=== PATIENT | female | born 1945 | race Caucasian/White ===

== ENCOUNTER 2018-04-04 08:10 | Emergency (ER) | payer MEDICARE, MEDICAID ==
[~2018-04-04] VITALS: Ht 165.1 cm; Wt 72.7 kg
[~2018-04-04 08:10] MED LIST: AMLODIPINE5 MG PO; ASPIRIN 32325 MG/TAB PO; ATIVAN1 MG PO; CARBATROL200 MG PO; CARBATROL300 MG PO; DARVOCET N PO; DIOVAN HCT 25 M1 TA1 PO; DIOVAN HCT PO; DIOVAN320 MG PO; GLUCOPHAGE1000 MG PO; GLUCOPHAGE500 MG PO; GLUCOPHAGE500 MG/TAB PO; NORCO 325 MG-51 TAB PO; NORVASC 10MG10 MG PO; NYSTATIN POWDER15 GM PO; PHENYTEK200 MG PO; PRAVACHOL 40MG40 MG PO; TENORMIN 2525 MG/TAB PO; VIMPAT100 MG PO; VIMPAT50 MG PO; ZOCOR 20MG20 MG PO; ZOCOR 40MG40 MG PO
[2018-04-04 08:12] VITALS: TEMP 97
[2018-04-04 08:26] LABS: BASO # 0.1 (0.0-0.2); BASO % 1.1 % (0.0-2.0); EOS # 0.1 (0.0-0.7); EOS % 1.9 % (0-4.0); GRAN # 3.3 (1.4-6.5); HEMATOCRIT 35.9 % (37.0-47.0); HEMOGLOBIN 11.8 g/dl (12.5-16.0); LYMPH # 0.9 (1.2-3.4); LYMPH % 18.9 % (20.0-51.0); MEAN CELL VOLUME 90 fl (80.0-100.0); MEAN CORPUSCULAR HEMOGLOBIN 30 pg (27.0-31.0); MEAN CORPUSCULAR HGB CONC 33 g/dl (33.0-37.0); MEAN PLATELET VOLUME 10.4 fl (7.4-10.4); MONO # 0.3 (0.1-0.6); MONO % 6.8 % (1.7-9.3); PLATELET COUNT 144 K/mm3 (130-400); REDCELL DISTRIBUTION WIDTH-CV 13.3 % (11.5-14.5)
[2018-04-04] MEDS ORDERED: HCTZ12.5TAB PO (08:35)
[2018-04-04] MEDS ORDERED: COZAAR100 MG PO (08:36)
[2018-04-04] MEDS ORDERED: ZOLOFT 25MG25 MG PO (08:36)
[2018-04-04] MEDS ORDERED: LIPITOR 40MG TA40 MG PO (08:36)
[2018-04-04] MEDS ORDERED: VIMPAT100 MG PO (08:37)
[2018-04-04 08:38] LABS: ALBUMIN 4.2 gm/dL (3.5-5.0); BILIRUBIN,TOTAL 0.3 mg/dL (0.0-1.0); C-REACTIVE PROTEIN 0.6 mg/dL (0.0-0.9); CALCIUM 9.3 mg/dL (8.4-10.2); CREATININE, serum 0.92 mg/dL (0.52-1.25); POTASSIUM 3.5 mmol/L (3.4-5.0); TOTAL PROTEIN 7.1 gm/dL (6.4-8.2)
[2018-04-04] MEDS ORDERED: ARICEPT 5MG PO (08:38)
[2018-04-04] MEDS ORDERED: TAB-A-VITE1 TA1 PO (08:39)
[2018-04-04] MEDS ORDERED: SINEMET 25/101 UDTAB PO (08:39)
[2018-04-04 08:52] LABS: PROLACTIN 64.1 ng/mL (3.0-18.6)
[2018-04-04 09:37] LABS: COLLECTION METHOD CLEAN CATCH
[2018-04-04 09:43] LABS: MUCOUS Present /lpf; PH 6 (5-8); URINE APPEARANCE Clear; URINE BACTERIA None Seen /hpf; URINE BILIRUBIN Negative (NEGATIVE); URINE BLOOD Negative (NEGATIVE); URINE COLOR Yellow; URINE GLUCOSE Negative (NEGATIVE); URINE KETONE Negative (NEGATIVE); URINE LEUKOCYTE ESTERASE Negative (NEGATIVE); URINE NITRATE Negative (NEGATIVE); URINE PROTEIN(semi-quant) Negative (NEGATIVE); URINE RBC 0-2 /hpf; URINE UROBILINOGEN Negative (NEGATIVE)
[2018-04-04 10:30] VITALS: BP 162/66; PULSE 79
== END 2018-04-04 10:32 | disposition home or self-care (01) ==
LOC: COL.ER 08:10
PROVIDERS: Family Medicine
DX: S00.93XA Contusion of unspecified part of head, initial encounter (principal); G40.909 Epilepsy, unspecified, not intractable, without status epilepticus; F03.90 Unspecified dementia, unspecified severity, without behavioral disturbance, psychotic disturbance, mood disturbance, and anxiety; Z87.891 Personal history of nicotine dependence; Z79.82 Long term (current) use of aspirin
CPT/HCPCS: J2060; J7030

== ENCOUNTER → 2018-07-13 | Outpatient (REF) ==
[~2018-07-13] MED LIST changes: +ARICEPT 5MG PO; +COZAAR100 MG PO; +HCTZ12.5TAB PO; +LIPITOR 40MG TA40 MG PO; +SINEMET 25/101 UDTAB PO; +TAB-A-VITE1 TA1 PO; +ZOLOFT 25MG25 MG PO
== END ==
LOC: ZLAB.STJ 09:38
DX: Z51.81 Encounter for therapeutic drug level monitoring (principal)

== ENCOUNTER → 2018-08-25 | Outpatient (CLI) | payer MEDICARE, MEDICAID ==
[2018-08-25 12:49] LABS: ALBUMIN 4.3 gm/dL (3.5-5.0); BILIRUBIN,TOTAL 0.4 mg/dL (0.0-1.0); CALCIUM 9.6 mg/dL (8.4-10.2); CREATININE, serum 0.91 mg/dL (0.52-1.25); POTASSIUM 4.4 mmol/L (3.4-5.0); TOTAL PROTEIN 7.2 gm/dL (6.4-8.2)
== END ==
LOC: ZLAB.STJ 12:12
PROVIDERS: Internal Medicine
DX: E11.9 Type 2 diabetes mellitus without complications (principal); I10 Essential (primary) hypertension

== ENCOUNTER 2018-09-08 13:05 | Emergency (ER) | payer MEDICARE, MEDICAID ==
[~2018-09-08] VITALS: Ht 172.7 cm; Wt 81.8 kg
[2018-09-08 13:15] VITALS: TEMP 97.9
[2018-09-08 13:47] LABS: BASO # 0.1 (0.0-0.2); BASO % 1.1 % (0.0-2.0); EOS # 0.1 (0.0-0.7); EOS % 2.3 % (0-4.0); GRAN # 3.3 (1.4-6.5); GRAN % 62.6 % (42.2-75.2); HEMATOCRIT 37.3 % (37.0-47.0); HEMOGLOBIN 12.3 g/dl (12.5-16.0); LYMPH # 1.4 (1.2-3.4); LYMPH % 26.2 % (20.0-51.0); MEAN CELL VOLUME 89 fl (80.0-100.0); MEAN CORPUSCULAR HEMOGLOBIN 29 pg (27.0-31.0); MEAN CORPUSCULAR HGB CONC 33 g/dl (33.0-37.0); MEAN PLATELET VOLUME 10.1 fl (7.4-10.4); MONO # 0.4 (0.1-0.6); MONO % 7.6 % (1.7-9.3); PLATELET COUNT 180 K/mm3 (130-400); RED BLOOD COUNT 4.21 M/mm3 (4.10-5.30); REDCELL DISTRIBUTION WIDTH-CV 13.2 % (11.5-14.5)
[2018-09-08 14:03] LABS: ALBUMIN 4.3 gm/dL (3.5-5.0); BILIRUBIN,TOTAL 0.3 mg/dL (0.0-1.0); CREATININE, serum 0.92 mg/dL (0.52-1.25); POTASSIUM 3.8 mmol/L (3.4-5.0); TOTAL PROTEIN 7.5 gm/dL (6.4-8.2)
[2018-09-08 14:14] LABS: COLLECTION METHOD CATHETER
[2018-09-08 14:28] LABS: PH 7 (5-8); SQUAMOUS EPITHELIAL None Seen /hpf; URINE APPEARANCE Clear; URINE BACTERIA None Seen /hpf; URINE BILIRUBIN Negative (NEGATIVE); URINE BLOOD 1+ (NEGATIVE); URINE COLOR Straw; URINE GLUCOSE Negative (NEGATIVE); URINE KETONE Negative (NEGATIVE); URINE LEUKOCYTE ESTERASE Negative (NEGATIVE); URINE NITRATE Negative (NEGATIVE); URINE PROTEIN(semi-quant) Negative (NEGATIVE); URINE UROBILINOGEN Negative (NEGATIVE)
[2018-09-08 18:01] VITALS: BP 172/92; PULSE 77
== END 2018-09-08 18:03 | disposition home or self-care (01) ==
LOC: COL.ER 13:05
PROVIDERS: Physician Assistant
DX: N95.0 Postmenopausal bleeding (principal); E11.9 Type 2 diabetes mellitus without complications; I10 Essential (primary) hypertension; G40.909 Epilepsy, unspecified, not intractable, without status epilepticus; G20 Parkinson's disease; Z98.890 Other specified postprocedural states; Z98.51 Tubal ligation status; Z79.82 Long term (current) use of aspirin; Z87.891 Personal history of nicotine dependence
CPT/HCPCS: J7030

== ENCOUNTER 2018-11-05 15:14 | Emergency (ER) | payer MEDICARE, MEDICAID ==
[~2018-11-05] VITALS: Ht 165.1 cm; Wt 81.8 kg
[2018-11-05 15:20] VITALS: TEMP 98.2
[2018-11-05 15:50] LABS: BASO % 0.3 % (0.0-2.0); EOS % 0.1 % (0-4.0); GRAN # 8.4 (1.4-6.5); GRAN % 84.7 % (42.2-75.2); HEMATOCRIT 38.1 % (37.0-47.0); HEMOGLOBIN 12.5 g/dl (12.5-16.0); LYMPH # 0.7 (1.2-3.4); LYMPH % 7.4 % (20.0-51.0); MEAN CELL VOLUME 89 fl (80.0-100.0); MEAN CORPUSCULAR HEMOGLOBIN 29 pg (27.0-31.0); MEAN CORPUSCULAR HGB CONC 33 g/dl (33.0-37.0); MEAN PLATELET VOLUME 9.8 fl (7.4-10.4); MONO # 0.7 (0.1-0.6); MONO % 7.2 % (1.7-9.3); PLATELET COUNT 209 K/mm3 (130-400); RED BLOOD COUNT 4.26 M/mm3 (4.10-5.30)
[2018-11-05 16:04] LABS: ALANINE AMINOTRANSFERASE 15 U/L (9-52); ALBUMIN 4.4 gm/dL (3.5-5.0); ALKALINE PHOSPHATASE 163 U/L (50-136); ANION GAP 9 mmol/L (7-16); AST,SGOT 30 U/L (15-37); BILIRUBIN,TOTAL 0.4 mg/dL (0.0-1.0); BLOOD UREA NITROGEN 21 mg/dL (7-17); C-REACTIVE PROTEIN < 0.5 mg/dL (0.0-0.9); CALCIUM 9.8 mg/dL (8.4-10.2); CARBON DIOXIDE 27 mmol/L (22-30); CHLORIDE 102 mmol/L (98-107); CREATININE, serum 0.84 mg/dL (0.52-1.25); GLUCOSE 127 mg/dL (74-106); POTASSIUM 3.6 mmol/L (3.4-5.0); SODIUM 138 mmol/L (137-145); TOTAL PROTEIN 7.5 gm/dL (6.4-8.2)
[2018-11-05 16:34] LABS: PHENYTOIN (DILANTIN) 11.5 ug/mL (10.0-20.0)
--- NOTE | 2018-11-05 16:47 | NUR ---
CHRISTIE rec'd call from nurse about patient contacting EMS multiple times today and patient having little homecare at home. CHRISTIE met with patient to talk about her homecare person and how often they see her. Patient reports her aid comes on wednesdays and she does not have nurse or any therapy. Patient has used a walker in the past but she does not use one anymore. CHRISTIE asked patient if she would be interested in nursing and physical therapy from the company she has an aid through ([facility]). Patient reported she would think those would be good for her. CHRISTIE faxed a referral and [facility] reported they have telephone answering service operator nursing that can see her this weekend.
[2018-11-05 16:51] LABS: COLLECTION METHOD CATHETER
[2018-11-05 16:58] LABS: PH 5 (5-8); SQUAMOUS EPITHELIAL 0-2 /hpf; URINE APPEARANCE Clear; URINE BACTERIA None Seen /hpf; URINE BILIRUBIN Negative (NEGATIVE); URINE BLOOD 1+ (NEGATIVE); URINE COLOR Yellow; URINE GLUCOSE Negative (NEGATIVE); URINE KETONE Negative (NEGATIVE); URINE LEUKOCYTE ESTERASE Negative (NEGATIVE); URINE NITRATE Negative (NEGATIVE); URINE PROTEIN(semi-quant) Negative (NEGATIVE); URINE RBC 0-2 /hpf; URINE UROBILINOGEN Negative (NEGATIVE)
[2018-11-05] MEDS ORDERED: ASPIRIN E.C. 8181 MG PO (17:27)
[2018-11-05] MEDS ORDERED: NORVASC 10MG10 MG PO (17:27)
[2018-11-05] MEDS ORDERED: LIPITOR 40MG TA40 MG PO (17:27)
[2018-11-05] MEDS ORDERED: ARICEPT 5MG PO (17:28)
[2018-11-05] MEDS ORDERED: SINEMET 25/101 UDTAB PO (17:28)
[2018-11-05] MEDS ORDERED: DILANTIN 100MG100 MG PO (17:29)
[2018-11-05] MEDS ORDERED: COZAAR100 MG PO (17:29)
[2018-11-05] MEDS ORDERED: HCTZ12.5TAB PO (17:29)
[2018-11-05] MEDS ORDERED: VIMPAT100 MG PO (17:30)
[2018-11-05] MEDS ORDERED: ZOLOFT 25MG25 MG PO (17:30)
[2018-11-05 19:15] VITALS: BP 110/85; PULSE 88
== END 2018-11-05 19:29 | disposition home or self-care (01) ==
LOC: COL.ER 15:14
PROVIDERS: Emergency Medicine
DX: S00.31XA Abrasion of nose, initial encounter (principal); R53.1 Weakness; I10 Essential (primary) hypertension; G20 Parkinson's disease; F03.90 Unspecified dementia, unspecified severity, without behavioral disturbance, psychotic disturbance, mood disturbance, and anxiety; Z79.82 Long term (current) use of aspirin; W19.XXXA Unspecified fall, initial encounter; Y92.009 Unspecified place in unspecified non-institutional (private) residence as the place of occurrence of the external cause

== ENCOUNTER → 2019-01-25 | Outpatient (CLI) | payer MEDICARE, MEDICAID ==
[~2019-01-25] MED LIST changes: +ASPIRIN E.C. 8181 MG PO; +DILANTIN 100MG100 MG PO
== END ==
LOC: MC.RAD 13:21
DX: N63.10 Unspecified lump in the right breast, unspecified quadrant (principal)
CPT/HCPCS: G0279

== ENCOUNTER 2020-03-17 16:33 | Inpatient (IN) | payer MEDICARE, MEDICAID ==
[~2020-03-17] VITALS: Wt 89.7 kg
[2020-03-17 16:54] LABS: BASO % 0.4 % (0.0-2.0); EOS % 0.1 % (0-4.0); GRAN # 7.7 (1.4-6.5); GRAN % 85.9 % (42.2-75.2); HEMATOCRIT 39.5 % (37.0-47.0); HEMOGLOBIN 12.9 g/dl (12.5-16.0); LYMPH # 0.7 (1.2-3.4); LYMPH % 7.6 % (20.0-51.0); MEAN CELL VOLUME 88 fl (80.0-100.0); MEAN CORPUSCULAR HEMOGLOBIN 29 pg (27.0-31.0); MEAN CORPUSCULAR HGB CONC 33 g/dl (33.0-37.0); MEAN PLATELET VOLUME 10.1 fl (7.4-10.4); MONO # 0.5 (0.1-0.6); MONO % 5.7 % (1.7-9.3); PLATELET COUNT 194 K/mm3 (130-400); RED BLOOD COUNT 4.48 M/mm3 (4.10-5.30); REDCELL DISTRIBUTION WIDTH-CV 13.4 % (11.5-14.5)
[2020-03-17 17:16] LABS: ALBUMIN 4.5 gm/dL (3.5-5.0); BILIRUBIN,TOTAL 0.5 mg/dL (0.0-1.0); C-REACTIVE PROTEIN 0.7 mg/dL (0.0-0.9); CALCIUM 9.6 mg/dL (8.4-10.2); CREATININE, serum 0.88 (0.52-1.25); POTASSIUM 3.4 mmol/L (3.4-5.0); TOTAL PROTEIN 7.9 gm/dL (6.4-8.2)
[2020-03-17 17:30] LABS: PROLACTIN 48.6 ng/mL (3.0-18.6); TROPONIN-I 0.088 ng/mL (0.000-0.035)
[2020-03-17 17:42] LABS: PHENYTOIN (DILANTIN) 20.4 ug/mL (10.0-20.0)
--- NOTE | 2020-03-17 20:43 | NUR ---
Pt REPORT RECEIVED FROM MARINE INSULATOR. Pt IS BEING ADMITTED FOR SEIZURES AND N-STEMI. Pt IS REPORTED TO BE ALERT BUT CONFUSED WITH VS WNL AND NO S/S OF DISTRESS AT THIS TIME. AWAITING Pt ARRIVAL ON MEDICAL UNIT.
--- NOTE | 2020-03-17 20:50 | NUR ---
Pt ARRIVED TO MEDICAL UNIT FROM ED WITH ED NURSE. Pt IS EDUCATED ON ROOM ORIENTATION AND CALL LIGHT/TV REMOTE CONTROL. Pt IS A&OX4 BUT IS CONFUSED ON WHAT IS HAPPENING AND WHY SHE IS AT THE HOSPITAL STATING "I AM NOT SICK". EDUCATION PROVIDED ON SEIZURE ACTIVITY AND ELEVATED TROPONIN LEVELS INDICATING THAT SHE HAD A CARDIAC EPISODE AND IS BEING ADMITTED FOR OBSERVATION OF HEALTH STATUS. Pt JUST KEEPS REPLYING THAT SHE IS OK AND ASKING IF SHE WILL GO HOME IN THE MORNING. EDUCATION PROVIDED THAT THIS LINEMARKER DOES NOT YET KNOW WHEN Pt WILL BE ABLE TO GO HOME BUT SHE WILL SEE THE Dr IN THE MORNING AND DEPENDING ON HER CONDITION AND THE Dr ASSESSMENT SHE MAY GO HOME TOMORROW. Pt STATES UNDERSTANDING. CALL LIGHT IS WITHIN REACH AND BEVERAGE IS ON BEDSIDE TABLE WITHIN REACH. TV IS TURNED ON FOR Pt. NO S/S OF DISTRESS NOTED AT THIS TIME. WILL CONTINUE TO MONITOR.
[2020-03-17 21:34] VITALS: BP 135/44; PULSE 76; TEMP 98.2
[2020-03-18 00:38] VITALS: BP 121/50; PULSE 68; TEMP 97.9
--- NOTE | 2020-03-18 01:16 | NUR ---
Pt HAS BEEN RESTING PEACEFULLY IN BED SINCE BEING ADMITTED TO THE UNIT AND INITIALLY WAS WATCHING TV BUT HAS SINCE TURNED THE TV OFF AND HAS BEEN RESTING WITH EYES CLOSED. NO S/S OF DISTRESS NOTED AND CALL LIGHT IS WITHIN REACH. Pt REMAINED A&O X4 BUT HAS PERIODIC CONFUSION ABOUT WHY SHE HAS BEEN ADMITTED. WILL CONTINUE TO MONITOR.
--- NOTE | 2020-03-18 04:25 | NUR ---
Pt IS CURRENTLY RESTING IN BED WITH EYES CLOSED AND NO S/S OF DISTRESS NOTED. CALL LIGHT IS WITHIN REACH AND BEVERAGE IS WITHIN REACH ON BEDSIDE TABLE. WILL CONTINUE TO MONITOR.
[2020-03-18 04:33] VITALS: BP 131/49; PULSE 75; TEMP 98
--- NOTE | 2020-03-18 06:24 | NUR ---
Pt REMAINS IN STABLE CONDITION AT THIS TIME WITH NO S/S OF DISTRESS NOTED. CALL LIGHT WITHIN REACH. WILL CONTINUE TO MONITOR.
[2020-03-18 06:29] LABS: BASO % 0.6 % (0.0-2.0); EOS # 0.1 (0.0-0.7); EOS % 1.5 % (0-4.0); GRAN # 3.1 (1.4-6.5); GRAN % 66.3 % (42.2-75.2); HEMOGLOBIN 11.2 g/dl (12.5-16.0); LYMPH # 1.1 (1.2-3.4); LYMPH % 23.4 % (20.0-51.0); MEAN CELL VOLUME 87 fl (80.0-100.0); MEAN CORPUSCULAR HEMOGLOBIN 28 pg (27.0-31.0); MEAN CORPUSCULAR HGB CONC 32 g/dl (33.0-37.0); MEAN PLATELET VOLUME 10.6 fl (7.4-10.4); MONO # 0.4 (0.1-0.6); MONO % 8.2 % (1.7-9.3); PLATELET COUNT 146 K/mm3 (130-400); RED BLOOD COUNT 3.98 M/mm3 (4.10-5.30); REDCELL DISTRIBUTION WIDTH-CV 13.5 % (11.5-14.5)
--- NOTE | 2020-03-18 06:38 | NUR ---
REPORT GIVEN TO DAYSHIFT RN AT BEDSIDE
[2020-03-18 06:39] LABS: HEMATOCRIT 34.6 % (37.0-47.0)
[2020-03-18 06:49] LABS: CALCIUM 8.7 mg/dL (8.4-10.2); CREATININE, serum 0.7 (0.52-1.25)
--- NOTE | 2020-03-18 07:35 | NUR ---
ILYA ISRAEL NOTIFIED OF CRITICAL TROPOPNIN 0.062
--- NOTE | 2020-03-18 08:00 | NUR ---
PT ALERT TO PERSON, PLACE, AND TIME. REPEATEDLY SAID "I'M NOT SICK, I'M NOT INCOMPETENT, I'M ONLY CONFUSED AFTER SEIZURES". PT SEEMED DISTRESSED THAT SHE IS IN THE HOSPITAL SAYING "I HAD SEIZURES BEFORE AND HAVEN'T HAD TO COME HERE, MY DOCTOR DIDN'T ORDER THIS". PT BECAME TEARFUL AT THIS TIME. TREMOR IN LEFT HAND PRESENT. BLE EDEMA 1+. PT WOULD TRAIL OFF IN THE MIDDLE OF A SENTENCE AND NOT FINISH IT, STARED OFF INTO SPACE AT THIS TIME. NETWORK SUPPORT ENGINEER EQUAL. PT ASKED WHAT BEEPING WAS IN ROOM, EXPLAINED IV AND THAT WHEN SHE BENDS HER ARM IT MAKES THE MACHINE BEEP, SHE KEPT SAYING "NO THATS NOT MY BAD ARM, THIS IS MY BAD ARM (RAISING RIGHT ARM)". PT DID NOT SEEM TO COMPREHEND WHAT I WAS EXPLAINING.
[2020-03-18 08:24] VITALS: BP 136/64; PULSE 74; TEMP 97.4
--- NOTE | 2020-03-18 09:32 | NUR ---
ATTEMPTED TO CALL IN CONSULT TO DR. BECERRA TO PAGER, HEALTH [employer] LINE, AND PERSONAL CELL. WILL ATTEMPT AGAIN LATER.
--- NOTE | 2020-03-18 10:54 | NUR ---
PT TOLD STORY OF HOW SHE CAME IN TO HOSPITAL, PT STORY IS CONFUSING AND DOES NOT MAKE SENSE, PT ALERT AND ORIENTED TO PERSON, PLACE, TIME, AND SITUATION BUT SPEECH IS OFTEN INNAPROPRIATE FOR THE TOPIC OR PT TRAILS OFF AND DOES NOT FINISH HER SENTENCE.
[2020-03-18 11:42] LABS: COLLECTION METHOD CATHETER
[2020-03-18 11:55] LABS: MUCOUS Present /lpf; PH 5 (5-8); SQUAMOUS EPITHELIAL 0-2 /hpf; URINE APPEARANCE Clear; URINE BACTERIA None Seen /hpf; URINE BILIRUBIN Negative (NEGATIVE); URINE BLOOD Negative (NEGATIVE); URINE COLOR Yellow; URINE GLUCOSE Negative (NEGATIVE); URINE KETONE Negative (NEGATIVE); URINE LEUKOCYTE ESTERASE Negative (NEGATIVE); URINE NITRATE Negative (NEGATIVE); URINE PROTEIN(semi-quant) Negative (NEGATIVE); URINE RBC 0-2 /hpf; URINE UROBILINOGEN Negative (NEGATIVE)
[2020-03-18 12:07] VITALS: BP 139/74; PULSE 53; TEMP 97.6
--- NOTE | 2020-03-18 12:18 | NUR ---
Plan: Patient is hoping to return home where she lives alone. Patient reported that her son Miguel Corral [phone] who currently lives in [place] is her EMR, and she does not have a DPOA at this time, she declined one. The patient currently resides in [facility]. Assess: SW met with patient at her bedside. Patient reports that she does use a walker, that her PCP is Dr Jimenez and Dr. Pettit and patient contends that she does have an upcoming appointment however she does not know when it is. Patient reports that she gets her medications from [facility] with no concerns, and that she was currently getting [facility] services from [facility] ( Annemarie Hicks, and [facility])and that she was going to start receiving services from [facility]. SW did attempt to verify services however both agencies were closed over the weekend. Hospitalist did present during assessment, and patient became somewhat concerned with the thought of going to a prison. Plan: Sw will follow up, Hospitalist is putting in referrals for PT/OT assessments. Weekday SW may want to verify if patient is set up for services with [facility] and [facility].
--- NOTE | 2020-03-18 13:32 | NUR ---
PT PHARMACY CONTACTED TO FAX MED LIST
--- NOTE | 2020-03-18 14:14 | NUR ---
PT BEING HESTITANT DRINKING POTASSIUM WITH JUICE SINCE SHE DOES NOT TAKE IT AT HOME. TRIED TO EXPLAIN PUROPSE BUT PT DID NOT SEEM INTERESTED. WILL CONTINUE TO ENCOURAGE DRINKING THE MIXTURE.
--- NOTE | 2020-03-18 15:58 | NUR ---
PT WOULD NOT DRINK NEW EFFERVESENT, STILL WORKING ON LAST DOSE FROM 2HOURS AGO.
--- NOTE | 2020-03-18 16:01 | NUR ---
PT SHARED WITH ME HER NORMAL ROUTINE WITH HOME HEALTH. PT STATES HOSPICE WILL START MAKING HOME VISITS WELL. NOT SURE HOW MUCH OF THIS IS ACCURATE, BUT I KNOW SHE DOES HAVE AT HOME HELP WITH CLEANING, MEALS, AND MEDICATIONS.
[2020-03-18 16:28] VITALS: BP 143/74; PULSE 63; TEMP 97.9
--- NOTE | 2020-03-18 17:35 | NUR ---
PT FOCUSED ON DISCHARGE. WENT OVER HOME CARE PLANS WITH ME, OBTAINED MED LIST FROM PHARMACY, MED LIST CONSISTENT WITH MED REC. PT REPORTED BEING DIABETIC AND TAKING MEDICATION ALTHOUGH NO DIABETES MEDICATION WAS LISTED ON HER MED LIST FROM PHARMACY. PT IS ALERT AND ORIENTED BUT SOMETIMES DOES NOT FINISH HER SENTENCES AND TALKS ABOUT THINGS THAT DOES NOT MAKE SENSE WITH OTHER QUESTIONS THAT ARE ASKED. FLUIDS DC'D ON PT. DENIES PAIN OR DISCOMFORT. SON UPDATED TODAY.
[2020-03-18 19:07] VITALS: BP 131/50; PULSE 66; TEMP 98.1
[2020-03-19] VITALS (7 sets, daily range): BP systolic 127–149; BP diastolic 46–64; PULSE 63–68; TEMP 97.6–98.7
--- NOTE | 2020-03-19 06:00 | NUR ---
Patient has been very confused all night. She pulled her IV. New IV started by [employer] Finisher Helper. Patient keeps thinking she needs to go home. She is trying to ask for her home pills. Explained we have them here. She needs several reminders. Denies pain or nausea. She gets around well with walker and gaitbelt. She does not remember why she is here. No other changes at this time. Call light within reach. Bed alarm on.
[2020-03-19 06:31] LABS: BASO % 0.8 % (0.0-2.0); EOS # 0.1 (0.0-0.7); EOS % 1.9 % (0-4.0); GRAN # 3.4 (1.4-6.5); GRAN % 64.1 % (42.2-75.2); HEMATOCRIT 37.1 % (37.0-47.0); HEMOGLOBIN 12.3 g/dl (12.5-16.0); LYMPH # 1.3 (1.2-3.4); LYMPH % 24.8 % (20.0-51.0); MEAN CELL VOLUME 87 fl (80.0-100.0); MEAN CORPUSCULAR HEMOGLOBIN 29 pg (27.0-31.0); MEAN CORPUSCULAR HGB CONC 33 g/dl (33.0-37.0); MEAN PLATELET VOLUME 10.5 fl (7.4-10.4); MONO # 0.4 (0.1-0.6); PLATELET COUNT 172 K/mm3 (130-400); RED BLOOD COUNT 4.27 M/mm3 (4.10-5.30); REDCELL DISTRIBUTION WIDTH-CV 13.7 % (11.5-14.5)
[2020-03-19 07:00] LABS: CALCIUM 9.2 mg/dL (8.4-10.2); CREATININE, serum 0.66 (0.52-1.25); POTASSIUM 3.5 mmol/L (3.4-5.0)
--- NOTE | 2020-03-19 07:34 | NUR ---
PT IN BED, PLEASANTLY CONFUSED, IV FLUSHED, MEDICATIONS GIVEN, HELD DIEURETIC AND LOPRESSOR FOR L[place]ISC[place]. PT ALERT TO PERSON AND YEAR BUT NOT CURRENT MONTH OR PLACE. PT THOUGHT THEY WERE IN THE CLINIC. PT NOW REFUSING TO GO TO [place]. PT IS CONFUSED AND DOES NOT WANT TO BE IN A MACHINE, PT DENYING HEART ATTACK AND THINKS SO IS GOING HOME TOMORROW. SON ON THE PHONE TRYING TO CONVINCE HER. PT STILL REFUSING. WILL CONTACT TO INFORM OF REFUSED LEXISCAN.
--- NOTE | 2020-03-19 07:52 | NUR ---
CALLED ILYA HOUSTON TO INFORM OF PT REFUSING L[place]ISCAN.
--- NOTE | 2020-03-19 11:27 | NUR ---
PT ALERT AND ORIENTED TO PERSON AND PLACE BUT NOT MONTH. ALERT ALSO TO PRESIDENT AND YEAR. PT KEEPS THINKING SHE IS LEAVING TOMORROW BECAUSE SHE HAS HELPERS VISITING HER APARTMENT. PT XAVIER, ATTEMPTS TO GET UP BY HERSELF OFTEN. FALL GOWN ON, ALARM SET, FALL SIGN ON DOOR, DOOR KEPT OPEN, REFUSING TO DRINK POTASSIUM IN JUICE. NO OTHER NEEDS AT THIS TIME.
--- NOTE | 2020-03-19 13:26 | NUR ---
TELE ALERTED ME TO ST ELEVATION IN ONE OF THE TELE LEADS BUT NOT ANOTHER. CHECKED LEADS, TELE REPORTED SAME PROBLEM. TALKED TO ILYA HOUSTON AND RECIEVED ORDER FOR 12 LEAD EKG, EKG NORMAL. NO OTHER ACTIONS NEEDED AT THIS TIME.
--- NOTE | 2020-03-19 17:20 | NUR ---
TALKED TO SON ON PHONE, SON TEARFUL ABOUT MOTHER'S SITUATION AND WORRIED ABOUT HER ABILITY TO CARE FOR HERSELF. PT PLEASANTLY CONFUSED, AOX3, PT DENIES PAIN OR DISCOMFORT, DID NOT DRINK ALL OF HER POTASSIUM MIXED WITH JUICE. PT HAS BEEN UTILIZING CALL LIGHT TO GO TO RESTROOM DURING THE DAY. FORGETFUL ABOUT MEDICATIONS BEING TAKEN, SON SAYS SHE DOES THIS AT HOME AND WILL SOMETIMES TAKE HER MEDICATIONS TWICE. NO OTHER NEEDS AT THIS TIME.
--- NOTE | 2020-03-19 19:10 | NUR ---
Pt REPORT RECEIVED FROM KUSHAL RN AT BEDSIDE. Pt IS SITTING IN HER RECLINER WITH CHAIR ALARM ACTIVATED AND CALL LIGHT WITHIN REACH. BEVERAGE AT HER SIDE. NO S/S OF DISTRESS. WILL CONTINUE TO MONITOR.
[2020-03-20 01:53] VITALS: BP 159/67; PULSE 71; TEMP 97.7
--- NOTE | 2020-03-20 03:44 | NUR ---
Pt HAS HAD A PEACEFULL SHIFT WITH ONLY INTERMITTENT BED ALARMS TRIGGERED. EARLIER IN THE SHIFT Pt KEPT PULLING HER TELE PADS AND LINES OFF WELL PULLING THE IV PIGTAIL EXTENSION OFF OF HER IV SITE. Pt EDUCATION PROVIDED ON THE IMPORTANCE OF LEAVING THESE LINES ALONE, WHAT THEY ARE USED FOR, AND THE RISKS OF HER REMOVING THEM WITHOUT NURSING ASSISTANCE OR AT THE APPROPRIATE TIMES. Pt STATES UNDERSTANDING BUT THIS NEGATIVE RESTORER WAS DUBIOUS OF HOW WELL Pt WILL REMEMBER THIS EDUCATION. Pt HAS LEFT HER IV LINE AND TELE PADS/LINE ALONE SINCE THE ABOVE EDUCATION WAS PROVIDED. Pt HAS ONCE AGAIN BECOME A&OX3 AND IS ABLE TO STATE HER NAME, YEAR, MONTH, AND LOCATION..... BUT THERE ARE STILL EPISODES OF CONFUSION EVIDENCED BY HER PREVIOUSLY REMOVING IV AND TELE LINES. NO S/S OF DISTRESS ARE NOTED. Pt REMAINS IN STABLE CONDITION AND IS CURRENTLY RESTING IN BED PEACEFULLY. Pt HAS BEEN ASSISTED TO THE RESTROOM DURING THE SHIFT BY THE CARD BRUSHER. WILL CONTINUE TO MONITOR.
[2020-03-20 05:13] VITALS: BP 148/59; PULSE 69; TEMP 97.9
--- NOTE | 2020-03-20 06:18 | NUR ---
Pt RESTING QUIETLY IN RECLINER WATCHING TV WITH NO S/S OF DISTRESS NOTED. CHAIR ALARM VERIFIED TURNED ON. WILL GIVE SHIFT REPORT TO DAYSHIFT RN
[2020-03-20 07:13] VITALS: BP 129/53; PULSE 66; TEMP 98.5
--- NOTE | 2020-03-20 07:15 | NUR ---
REPORT RECIEVED FROM YAMIL INGRAM. PT UP TO CHAIR, PT WANTS TO LEAVE TODAY, WAITING FOR MEDICATION AND BREAKFAST, DENIES PAIN OR DISCOMFORT, NO OTHER NEEDS AT THIS TIME.
--- NOTE | 2020-03-20 07:50 | NUR ---
PT IN ROOM, TOOK MEDS, ASSESSMENT PERFORMED, EXCITED TO GO HOME, PT PARTIALLY DRESSED TO LEAVE. DENIES PAIN OR DISCOMFORT, NO OTHER NEEDS AT THIS TIME. PT ALERT AND ORIENTED X4 THIS MORNING.
[2020-03-20] MEDS ORDERED: LOPRESSOR 225 MG/TAB PO (08:59)
[2020-03-20] MEDS ORDERED: VIMPAT200 MG PO (09:00)
[2020-03-20] MEDS ORDERED: DILANTIN 100MG100 MG PO (09:18)
[2020-03-20] MEDS ORDERED: VIMPAT100 MG PO (09:18)
--- NOTE | 2020-03-20 11:41 | NUR ---
Bunch Maker attended clinical rounds with the team and patient to discharge today. [facility]RISTIE contacted [facility] and confirmed they provide in home aides for patient. CHRISTIE faxed clinical updates and discharge orders to Thalia at [facility]. Thalia states they provide support on MWF for patient. CHRISTIE followed up with patient who reports she does not have a ride and is worried her apartment is locked. Patient does not have her purse or keys. CHRISTIE contacted [employer] transport and scheduled ride for 1200 (trip #[id number]). CHRISTIE provided transport time to patient and RNChiquita. CHRISTIE contacted Jenny at [facility] who advised they have someone from their agency meeting with the [facility] this morning, where patient lives. Jenny states they will ensure patient is able to get into her apartment when she arrives. CHRISTIE provided transport time to Luis and faxed discharge orders and summary. CHRISTIE contacted patient's son, Miguel to provide update on discharge. CHRISTIE followed up with patient again to provide updates. Patient is in agreement with discharge plan. CHRISTIE read IM form aloud to patient who verbalized understanding and provided verbal consent as signature. CHRISTIE placed form in chart. No additional needs at this time.
--- NOTE | 2020-03-20 12:00 | NUR ---
PT ESCORTED OUT VIA WHEELCHAIR WITH BELONGNINGS, DISCHARGE PAPERWORK PROVIDED AND EDUCATED ON. IV DC'D. NO OTHER NEEDS AT THIS TIME.
== END 2020-03-20 12:00 | disposition home health service (06) | DRG 100 ==
LOC: COL.ER 16:33 → MEDICAL 18:15
PROVIDERS: Emergency Medicine; Nurse Practitioner Family; ADMIT Internal Medicine
DX: G40.909 Epilepsy, unspecified, not intractable, without status epilepticus (principal); I21.A1 Myocardial infarction type 2; G20 Parkinson's disease; F02.80 Dementia in other diseases classified elsewhere, unspecified severity, without behavioral disturbance, psychotic disturbance, mood disturbance, and anxiety; E78.5 Hyperlipidemia, unspecified; E87.6 Hypokalemia; F32.9 Major depressive disorder, single episode, unspecified; I10 Essential (primary) hypertension; Z79.82 Long term (current) use of aspirin; Z87.891 Personal history of nicotine dependence
CPT/HCPCS: 99223-AI; 99231-AI; 99233-AI; 99239; J1650; J2060; J7030

== ENCOUNTER 2020-05-17 11:59 | Observation (INO) | payer MEDICARE, MEDICAID ==
[~2020-05-17] VITALS: Ht 167.6 cm; Wt 81.8 kg
[~2020-05-17 11:59] MED LIST changes: +LOPRESSOR 225 MG/TAB PO; +VIMPAT200 MG PO
[2020-05-17 14:02] LABS: BASO # 0.1 (0.0-0.2); BASO % 0.9 % (0.0-2.0); EOS # 0.1 (0.0-0.7); EOS % 1.3 % (0-4.0); GRAN % 75.2 % (42.2-75.2); HEMATOCRIT 37.7 % (37.0-47.0); HEMOGLOBIN 12.3 g/dl (12.5-16.0); LYMPH # 0.9 (1.2-3.4); LYMPH % 15.9 % (20.0-51.0); MEAN CELL VOLUME 89 fl (80.0-100.0); MEAN CORPUSCULAR HEMOGLOBIN 29 pg (27.0-31.0); MEAN CORPUSCULAR HGB CONC 33 g/dl (33.0-37.0); MONO # 0.4 (0.1-0.6); MONO % 6.5 % (1.7-9.3); PLATELET COUNT 168 K/mm3 (130-400); RED BLOOD COUNT 4.23 M/mm3 (4.10-5.30); REDCELL DISTRIBUTION WIDTH-CV 14.2 % (11.5-14.5)
[2020-05-17 14:10] LABS: ALBUMIN 4.3 gm/dL (3.5-5.0); BILIRUBIN,TOTAL 0.5 mg/dL (0.0-1.0); CALCIUM 9.1 mg/dL (8.4-10.2); CREATININE, serum 0.87 (0.52-1.25); POTASSIUM 3.8 mmol/L (3.4-5.0); TOTAL PROTEIN 7.6 gm/dL (6.4-8.2)
[2020-05-17 15:12] LABS: COLLECTION METHOD CATHETER
[2020-05-17 15:12] LABS: PROLACTIN 12.8 ng/mL (3.0-18.6)
[2020-05-17 15:29] LABS: PH 6 (5-8); SQUAMOUS EPITHELIAL 0-2 /hpf; URINE APPEARANCE Clear; URINE BACTERIA None Seen /hpf; URINE BILIRUBIN Negative (NEGATIVE); URINE BLOOD 2+ (NEGATIVE); URINE COLOR Straw; URINE GLUCOSE Negative (NEGATIVE); URINE KETONE Negative (NEGATIVE); URINE LEUKOCYTE ESTERASE Negative (NEGATIVE); URINE NITRATE Negative (NEGATIVE); URINE PROTEIN(semi-quant) Negative (NEGATIVE); URINE UROBILINOGEN Negative (NEGATIVE)
--- NOTE | 2020-05-17 15:32 | NUR ---
Food Order Expediter responded to a social science manager consult for the patient. Shahab with APS CHRISTIE reports the patient tore her phone cords out of the wall because she thought her upstairs neighbor was trying to get her through the lines. The patient will likely be needing geripsych placement. CHRISTIE faxed referrals to [facility] [place], [facility], [facility] in [place], and [facility]. [facility] reports they need more documented information for the patient. But do have a bed available in [place] on 05/18. This CHRISTIE provided Trinaa contact information so they may collaborate her notes on the patient's behaviors. [facility] would also like to know what the plan is after discharge from their facility. CHRISTIE faxed EMR to [facility] and to [facility]. CHRISTIE contacted Abner from [facility] and he reports they cannot make a decision until after geripsych. Kristyn from [facility] reports they cannot meet the patient's needs at this time. The team would like to see her more stable and then they can rereview. [facility] is still reviewing. [facility] reports they have a bed but they need DPOA-HC paperwork. The patient does not have any at this time. [facility] has a wait list and will not have availabilty until Thursday or Thursday, next week. [facility] [place] has 6 people on the wait list this day and only one discharge. The likelihood of the patient needing NH placement after geripsych is high. CHRISTIE faxed referrals to [facility], [facility], and [facility]. CHRISTIE contacted these facilities to provide update on the patient's situation. CHRISTIE contacted the patient's PCP for additional notes. Will continue to monitor.
[2020-05-17 16:34] VITALS: BP 138/55; PULSE 59; TEMP 97.6
[2020-05-17 16:35] VITALS: BP 138/55; PULSE 59; TEMP 97.6
[2020-05-17 16:43] VITALS: BP 138/55; PULSE 59; TEMP 97.6
--- NOTE | 2020-05-17 17:02 | NUR ---
Nidia from [facility] reports regrettably they will not be able to accommodate the patient at this time. Will continue to monitor.
--- NOTE | 2020-05-17 17:06 | NUR ---
PATIENT CAME UP TO THE FLOOR FROM THE EMERGENCY ROOM. PATIENT IS PARANOID OR CONFUSED ASKING THE SAME QUESTIONS OVER AND OVER. PATIENT WILL NOT CHANGE INTO A HOSPITAL GOWN BUT IS A FALL RISK. PATIENT DOES HAVE YELLOW GRIPPER SOCKS AND FALL RISK SINAGE OUTSIDE THE DOOR. PATIENT IS UNAWARE OF HER HOME MEDICATIONS WHEN ASKED. PATIENT IS A POOR HISTORIAN. PATIENT HAS A HEMATOMA ON HER LEFT SIDE OF HER FOREHEAD THAT IS OOZING SOME DRAINAGE. PATIENT STATED THAT SHE DID NOT WANT TO HAVE ANY MORE TESTS. PATIENT IS CONVINCED THAT SHE IS GOING HOME TOMORROW AND THAT DOCTOR CHERELLE DOES NOT KNOW HER AND HER DOCTOR IS CHRISTY. PATIENT WENT ON A WALK WITH THE MILL RECORDER. BED ALARM DOES REMAIN ON AND IN PLACE. LUNG SOUNDS CLEAR. PATIENT TOLD ME THAT SHE WAS IN [place] AT THE HOSPITAL, IT WAS 2021, PRESIDENT WAS GRIFFIN, AND WHAT HER IS. PATIENT IS NOW STATING THAT ITS A MENTAL DOSS AND SHE SHOULD NOT BE HERE. PATIENT IS STATING THAT SHE WILL GO HOME IN THE MORNING AND NOT TO [facility]. SINCE PATIENT IS CONFUSED AND PARANOID, JUST STATING WHERE SHE IS AND THAT THE DOCTOR WILL TELL HER WHEN SHE CAN LEAVE. PATIENT WAS GIVEN A DIET PEPSI AND IS WAITING ON DINNER TO ARRIVE. PATIENT WILL NOT PUT HOSPITAL GOWN ON BUT IS IN YELLOW GRIPPER SOCKS. PATIENT IS SITTING AT THE EDGE OF THE BED WITH THE ALARM ON AND IN PLACE. MONITORING VERY CLOSELY
--- NOTE | 2020-05-17 19:00 | NUR ---
Received report from Lian. Seen patient awake, sitting on the side of the bed. She is calm and just staring at the floor. Night meds were given early by day shift nurse. With hematoma on left side of forehead. INT on left AC. Bed alarm on.
--- NOTE | 2020-05-17 20:00 | NUR ---
Patient currently asleep. Sitter on the bedside.
[2020-05-18 04:38] VITALS: BP 132/50; PULSE 65; TEMP 97.8
--- NOTE | 2020-05-18 06:41 | NUR ---
Patient had been asleep most of the night. Will endorse to day shift nurse.
--- NOTE | 2020-05-18 07:00 | NUR ---
Bedside shift report received from YAMIL Gibson. Pt in bed resting, awake and alert, denies needs, will continue to monitor.
[2020-05-18 08:57] VITALS: BP 120/31; PULSE 64; TEMP 97.4
--- NOTE | 2020-05-18 09:00 | NUR ---
Assessmetn charted. Pt in bed resting with breakfast tray finsished. Denies pain. Awake and alert but not oriented to date. Very pleasant and agreeable. Call received from [facility] in [place], discussed with social services specialist regarding plan at discharge they will address. Pt is slow to respond but able to answer questions. Up to bathroom with SBA and walker. L forehead LAC is well approxiamted and healing well. INt to L AC. Will co ntinue to monitor.
--- NOTE | 2020-05-18 10:27 | NUR ---
Ariadna, at [facility], reports that they are declining the patient.
--- NOTE | 2020-05-18 10:36 | NUR ---
Lisa from [facility] reports they would like the patient to go to a geriphych. They would like to be considered for placement after.
[2020-05-18 13:00] VITALS: BP 107/46; PULSE 56; TEMP 97.9
--- NOTE | 2020-05-18 16:14 | NUR ---
Discharge teaching completed at time. INT dc'd, tip intact. Pt escorted out by myself, set off bed alarm and was going to leave independently regardless of my intervention, luckily ride was at ER entrance waiting for her. Pt left with all belongings, transport to drive home, criteria met.
--- NOTE | 2020-05-18 16:21 | NUR ---
Annabella, at [facility], reports that they are unable to accept the patient if she is not voluntary. CHRISTIE met with the patient to discuss going to a senioral behavioral health unit. The patient reports that she just wants to return home and does not want to go to a behavioral health unit. CHRISTIE updated Annabella at [facility]. Annabella reports that they would not be able to accept the patient then. Ronit, at [facility], reports that they would consider the patient after she had a geripsych stay. The patient is to discharge back home today, 05/18, with home health services for jail/PT/OT through the [facility] and will resume in home services from [facility]. CHRISTIE contacted and faxed the patient's d/c orders and records to Muriel at [facility]. Transportation back home is to be provided by Medicaid Transportation. CHRISTIE contacted and scheduled the ride. Trip ID#[id number]. CHRISTIE contacted and updated Gabriella and Debi with APS on the above information. Debi reports that she plans to have a meeting with the patient's PCP about the patient's care and getting guardianship. She states that she has collaborated with [facility] for them to visit the patient when she gets home from the hospital. No additional needs at this time.
== END 2020-05-18 16:25 | disposition home or self-care (01) ==
LOC: COL.ER 11:59 → MEDICAL 15:15
PROVIDERS: Family Medicine; ADMIT Internal Medicine
DX: F60.0 Paranoid personality disorder (principal); G40.909 Epilepsy, unspecified, not intractable, without status epilepticus; S00.83XA Contusion of other part of head, initial encounter; G20 Parkinson's disease; F02.80 Dementia in other diseases classified elsewhere, unspecified severity, without behavioral disturbance, psychotic disturbance, mood disturbance, and anxiety; R53.1 Weakness; I10 Essential (primary) hypertension; E78.5 Hyperlipidemia, unspecified; D64.9 Anemia, unspecified; F32.9 Major depressive disorder, single episode, unspecified; R53.81 Other malaise; R40.2412 Glasgow coma scale score 13-15, at arrival to emergency department; W19.XXXA Unspecified fall, initial encounter; Y92.009 Unspecified place in unspecified non-institutional (private) residence as the place of occurrence of the external cause; Z87.891 Personal history of nicotine dependence; Z79.82 Long term (current) use of aspirin; Z79.899 Other long term (current) drug therapy
CPT/HCPCS: G0378

== ENCOUNTER 2020-05-23 08:38 | Emergency (ER) | payer MEDICARE, MEDICAID ==
[~2020-05-23] VITALS: Ht 167.6 cm; Wt 81.8 kg
[2020-05-23 08:40] VITALS: TEMP 97.9
[2020-05-23 09:42] LABS: ALBUMIN 4.3 gm/dL (3.5-5.0); BILIRUBIN,TOTAL 0.6 mg/dL (0.0-1.0); CALCIUM 9.3 mg/dL (8.4-10.2); CREATININE, serum 0.83 (0.52-1.25); PHENYTOIN (DILANTIN) 17.9 ug/mL (10.0-20.0); POTASSIUM 3.4 mmol/L (3.4-5.0); TOTAL PROTEIN 7.6 gm/dL (6.4-8.2)
[2020-05-23 10:15] LABS: PROLACTIN 14.9 ng/mL (3.0-18.6)
--- NOTE | 2020-05-23 10:50 | NUR ---
Gold Reclaimer received consult for the patient. The patient is in for a fall. The patient has an open APS report. CHRISTIE contacted Debi with APS. Debi states she has contacted Dr. Jimenez regarding the patient's safety at home. Debi will keep this SW informed. CHRISTIE contacted the [facility] with Dr. Jimenez office. The patient has an appointment on 05/25 at 12:30. CHRISTIE contacted [facility] SEARCH ENGINE MARKETING SPECIALIST. They were supposed to meet with the patient this AM. She was not sure when they would go out to the patient's home. CHRISTIE contacted Muriel with [facility]. A nurse is supposed to visit on Thursday, 05/25 but will try and visit tomorrow 05/24. The patient is refusing a CT and wants to go home. She is to discharge home. CHRISTIE set up transportation for the patient through [facility]. CHRISTIE made an APS report. Intake # [id number]. CHRISTIE collaborated the above information with the patient's nurse.
[2020-05-23 12:00] VITALS: BP 121/58; PULSE 86
--- NOTE | 2020-05-23 14:01 | NUR ---
Stockroom Clerk received a call from Elizabeth Stockroom Clerk with Dr. Jimenez's office. She reports that Dr. Jimenez will be writing paperwork for guardianship either this day or 05/24. Elizabeth to email the paperwork to Aby Florian, Hi Low Truck Driver. CHRISTIE contacted Debi with [facility] to provide update. CHRISTIE collaborated the above information with Aby.
== END 2020-05-23 12:15 | disposition home or self-care (01) ==
LOC: COL.ER 08:38
PROVIDERS: Emergency Medicine
DX: R42 Dizziness and giddiness (principal); S09.90XA Unspecified injury of head, initial encounter; R29.6 Repeated falls; E78.5 Hyperlipidemia, unspecified; I10 Essential (primary) hypertension; R56.9 Unspecified convulsions; G20 Parkinson's disease; F32.9 Major depressive disorder, single episode, unspecified; Z86.59 Personal history of other mental and behavioral disorders; Z79.82 Long term (current) use of aspirin; Z79.899 Other long term (current) drug therapy

== ENCOUNTER 2020-05-27 13:10 | Observation (INO) | payer MEDICARE, MEDICAID ==
[~2020-05-27] VITALS: Ht 160 cm; Wt 86.8 kg
[2020-05-27 13:41] LABS: BASO % 0.4 % (0.0-2.0); EOS # 0.2 (0.0-0.7); EOS % 2.4 % (0-4.0); GRAN # 8.4 (1.4-6.5); GRAN % 87.1 % (42.2-75.2); HEMATOCRIT 38.1 % (37.0-47.0); HEMOGLOBIN 12.4 g/dl (12.5-16.0); LYMPH # 0.4 (1.2-3.4); LYMPH % 4.5 % (20.0-51.0); MEAN CELL VOLUME 87 fl (80.0-100.0); MEAN CORPUSCULAR HEMOGLOBIN 28 pg (27.0-31.0); MEAN CORPUSCULAR HGB CONC 33 g/dl (33.0-37.0); MEAN PLATELET VOLUME 10.1 fl (7.4-10.4); MONO # 0.4 (0.1-0.6); MONO % 4.5 % (1.7-9.3); PLATELET COUNT 176 K/mm3 (130-400); RED BLOOD COUNT 4.39 M/mm3 (4.10-5.30); REDCELL DISTRIBUTION WIDTH-CV 13.8 % (11.5-14.5)
[2020-05-27 13:48] LABS: ALANINE AMINOTRANSFERASE 10 U/L (4-34); ALBUMIN 4.5 gm/dL (3.5-5.0); ALKALINE PHOSPHATASE 213 U/L (50-136); ANION GAP 12 mmol/L (7-16); AST,SGOT 23 U/L (15-37); BILIRUBIN,TOTAL 0.6 mg/dL (0.0-1.0); BLOOD UREA NITROGEN 13 mg/dL (7-17); CALCIUM 9.5 mg/dL (8.4-10.2); CARBON DIOXIDE 25 mmol/L (22-30); CHLORIDE 101 mmol/L (98-107); CREATININE, serum 0.86 (0.52-1.25); GLUCOSE 141 mg/dL (74-106); MAGNESIUM 1.9 mg/dL (1.6-2.3); PHOSPHOROUS 2.4 mg/dL (2.5-4.5); POTASSIUM 3.2 mmol/L (3.4-5.0); SODIUM 138 mmol/L (137-145); TOTAL PROTEIN 7.8 gm/dL (6.4-8.2)
[2020-05-27 14:05] LABS: TROPONIN-I < 0.012 ng/mL (0.000-0.035)
--- NOTE | 2020-05-27 16:01 | NUR ---
SW informed that patient was in the ED for a recent fall and was headed to obtain a CAT scan. Nurse provided that she was aware there was an APS report and wanted to inform SW that patient was in ED. CHRISTIE followed up with SW dept to be provided further insight on case. SW read previous notes on patient's stay at the hospital. [facility], [facility] to provide services for patient in previous notes. Each facilty followed up with SW to provide services they provide. CHRISTIE was contacted by nurse in ED stating patient would be discharging, but then CHRISTIE recieved a call back from nurse stating the patient would not be discharging due to a seizure patient had. CHRISTIE will continue to follow.
[2020-05-27 18:12] VITALS: BP 110/43; PULSE 81; TEMP 97.8
--- NOTE | 2020-05-27 18:59 | NUR ---
Beth arrived on the floor and has had some AMS. She is not able to give any information for her 5 page. She has had seizure activity today, so she has pads on her bed.
[2020-05-27 20:00] VITALS: BP 99/68; PULSE 78; TEMP 98.1
--- NOTE | 2020-05-27 20:00 | NUR ---
Assessment complete at this time. Patient is sleeping but is easily woken up. She answers orientation questions related to president and birthday correctly but does not know where she is. Heart sounds are normal/regular, lungs are clear over diminished and her abdomen appears distended and is firm. No edema or pain is present. Hand seed cutter are equal and strong and patient is able to lift each leg off the bed and hold it. Seizure precautions are in place. Will contiue to monitor.
[2020-05-28 04:00] VITALS: BP 116/51; PULSE 80; TEMP 98.8
[2020-05-28 06:59] LABS: BASO % 0.4 % (0.0-2.0); EOS % 0.6 % (0-4.0); GRAN # 4.1 (1.4-6.5); GRAN % 76.9 % (42.2-75.2); HEMOGLOBIN 10.5 g/dl (12.5-16.0); LYMPH # 0.6 (1.2-3.4); LYMPH % 11.9 % (20.0-51.0); MEAN CELL VOLUME 88 fl (80.0-100.0); MEAN CORPUSCULAR HEMOGLOBIN 29 pg (27.0-31.0); MEAN CORPUSCULAR HGB CONC 33 g/dl (33.0-37.0); MEAN PLATELET VOLUME 10.2 fl (7.4-10.4); MONO # 0.5 (0.1-0.6); MONO % 9.8 % (1.7-9.3); PLATELET COUNT 151 K/mm3 (130-400); RED BLOOD COUNT 3.61 M/mm3 (4.10-5.30); REDCELL DISTRIBUTION WIDTH-CV 14.1 % (11.5-14.5)
[2020-05-28 07:00] LABS: HEMATOCRIT 31.9 % (37.0-47.0)
[2020-05-28 07:10] LABS: CALCIUM 8.7 mg/dL (8.4-10.2); CREATININE, serum 0.72 (0.52-1.25); POTASSIUM 3.2 mmol/L (3.4-5.0)
[2020-05-28 07:37] VITALS: BP 115/37; PULSE 78; TEMP 98.3
[2020-05-28 12:07] VITALS: BP 121/48; PULSE 70; TEMP 99
[2020-05-28 15:46] VITALS: BP 111/37; PULSE 69; TEMP 99.1
--- NOTE | 2020-05-28 15:47 | NUR ---
CHRISTIE contacted and notified Henrietta, APS worker, of the patient's hospitalization. Debi reports that she is working on getting guardianship for the patient, but cannot access the report of examination and evaluation that was emailed to her. CHRISTIE emailed the evaluation to Debi again. CHRISTIE met with the patient to review discharge plan and to discuss SNF. The patient reports that she wants to return back home and has all the care that she needs from [facility] and [facility]. CHRISTIE addressed all her falls. The patient states that it was only one fall and that she will do better. CHRISTIE contacted and faxed updates to Brenda at [facility]. CHRISTIE attempted to notify Barbara, at [facility], of patient's hospitalization. CHRISTIE left her a voicemail. SW to continue to follow.
--- NOTE | 2020-05-28 18:11 | NUR ---
PATIENT CURRENTLY SITTING UP IN THE BEDSIDE CHAIR WATCHING TV AND EATING HER DINNER TRAY. PATIENT POTASSIUM REPLACED PER PROTOCOL. PATIENT IS ABLE TO ANSWER A&O QUESTIONS APPROPRIATELY THIS AFTERNOON. PATIENT COMPLAINS OF LEFT ARM PAIN INTERMITTENTLY THROUGHOUT THE SHIFT. CALL LIGHT WITHIN REACH. BED ALARM ON. PATIENT DENIES ANY NEEDS AT THIS TIME. WILL REPORT OFF TO ONCOMING NURSE.
[2020-05-28 19:55] VITALS: BP 121/51; PULSE 75; TEMP 98.3
--- NOTE | 2020-05-28 21:30 | NUR ---
Pt. sitting up in chair at this time. Pt. is A&OX3, assessment complete. IV to rt. forearm patent, IV fluids infusing per orders. Pt. denies pain or other needs, call light within reach.
[2020-05-28 23:59] VITALS: BP 132/51; PULSE 70; TEMP 98.5
[2020-05-29 04:03] VITALS: BP 127/92; PULSE 68; TEMP 98
--- NOTE | 2020-05-29 07:01 | NUR ---
Lying in bed with eyes open. Patient is alert but disoriented to location and date. Denies pain at this time. Bruising, scabbing, some swelling noted to left side of face. Patient denies needs at this time.
[2020-05-29 08:03] VITALS: BP 138/44; PULSE 74; TEMP 98.3
--- NOTE | 2020-05-29 08:46 | NUR ---
Initial visit; Patient receptive to watershed manager visit and spiritual care. Patient liked prayer and Robotic Machine Operator offering God's blessings.
[2020-05-29 11:24] VITALS: BP 108/44; PULSE 76; TEMP 97.9
--- NOTE | 2020-05-29 13:40 | NUR ---
Sitting up in chair with eyes open. Patient is confused on where she is at and date. Reoriented patient. Patient says that she would like to watch TV, TV turned on at this time. Patient denies any additional needs at this time.
--- NOTE | 2020-05-29 13:48 | NUR ---
Dr. Anaya, psychiatrist, is coming tomorrow at 1100 to evaluate the patient. CHRISTIE contacted Margo at [facility] to inquire about having a psych screen for geripsych. Margo requested the patient's facesheet and records. Margo reports that after they receive those documents, then they can screen the patient. CHRISTIE faxed the documents to [facility]. CHRISTIE to continue to follow.
--- NOTE | 2020-05-29 15:13 | NUR ---
[facility] arrived and is now screening the patient.
--- NOTE | 2020-05-29 15:35 | NUR ---
Patient pulled out IV in right AC. Patient cleaned. Spoke with ILYA Decker, and she says that we do not need to reconnect fluids at this time.
--- NOTE | 2020-05-29 15:38 | NUR ---
Malina, [place] [facility] Scre[facility], reports that she believes the patient would be a good fit for [facility]; but that [facility] and other [facility] do not like to take without a DPOA-HC or guardian. She states that it will be hard to place her without this. Malina requests that we update her on how the patient's psych eval goes tomorrow and APS's status on guardianship. She states that she will hold off on sending referrals to [facility] now, until we have a better idea on when guardianship will be obtained. SW to continue to follow.
--- NOTE | 2020-05-29 16:03 | NUR ---
Sitting up in chair. Patient is alert but confused. Reoriented. Patient requests to watch TV, assisted patient in getting TV on. Patient denies additional needs at this time.
[2020-05-29 17:15] VITALS: BP 125/52; PULSE 77; TEMP 98.5
--- NOTE | 2020-05-29 19:25 | NUR ---
Resting in bed. Assessment complete. Lungs clear. Heart sounds normal. Bowels active x4. Pulses present throughout. Bilateral lower extremity edema +1. Given seroquel for agitation. Previously up walking in room and attempting to leave. Denies needs. Call light in reach. Bed alarm in place.
[2020-05-29 19:41] VITALS: BP 145/59; PULSE 80; TEMP 97.6
--- NOTE | 2020-05-29 21:55 | NUR ---
Patient continues to be confused and agitated. Spoke with Dr. Linder. Add another 25mg of seroquel now. Call if this does not help
--- NOTE | 2020-05-29 23:43 | NUR ---
Resting in bed asleep at this time. Will closely monitor.
--- NOTE | 2020-05-30 01:57 | NUR ---
In bed asleep at this time. Call light in reach.
[2020-05-30 04:00] VITALS: BP 123/49; PULSE 77; TEMP 98.3
--- NOTE | 2020-05-30 04:20 | NUR ---
Resting in bed asleep. Will monitor. Call light in reach. Bed alarm in place.
--- NOTE | 2020-05-30 06:12 | NUR ---
Patient was agitated at beginning of shift. Given a total of 50mg of seroquel. Otherwise uneventful night. Resting in bed this AM. Cooperative. Denies needs. Call light in reach.
[2020-05-30 06:24] LABS: BASO % 0.4 % (0.0-2.0); EOS # 0.1 (0.0-0.7); EOS % 1.6 % (0-4.0); GRAN # 2.9 (1.4-6.5); GRAN % 65.6 % (42.2-75.2); LYMPH % 21.9 % (20.0-51.0); MEAN CELL VOLUME 88 fl (80.0-100.0); MEAN CORPUSCULAR HGB CONC 33 g/dl (33.0-37.0); MEAN PLATELET VOLUME 10.1 fl (7.4-10.4); MONO # 0.5 (0.1-0.6); MONO % 10.3 % (1.7-9.3); PLATELET COUNT 130 K/mm3 (130-400); RED BLOOD COUNT 3.28 M/mm3 (4.10-5.30); REDCELL DISTRIBUTION WIDTH-CV 14.3 % (11.5-14.5)
[2020-05-30 06:33] LABS: HEMATOCRIT 28.9 % (37.0-47.0); HEMOGLOBIN 9.5 g/dl (12.5-16.0); MEAN CORPUSCULAR HEMOGLOBIN 29 pg (27.0-31.0)
[2020-05-30 06:51] LABS: CALCIUM 8.6 mg/dL (8.4-10.2); CREATININE, serum 0.65 (0.52-1.25); POTASSIUM 3.3 mmol/L (3.4-5.0)
--- NOTE | 2020-05-30 07:15 | NUR ---
Report given to YAMIL Bautista
[2020-05-30 08:02] VITALS: BP 114/44; PULSE 81; TEMP 98.7
--- NOTE | 2020-05-30 09:15 | NUR ---
PT RESTING IN BED KOMAL. [facility] TO SCREEN PT TODAY. DR. VÁSQUEZ TO SEE PATEINT TO DAY. ROSEMARIE CARABALLO IN TO SEE PT THIS AM.
[2020-05-30 12:02] VITALS: BP 109/72; PULSE 67; TEMP 99.2
--- NOTE | 2020-05-30 15:31 | NUR ---
social contact worker met with Dr Anaya to collaborate on patient's need for guardianship for acceptance to [facility] and then care home nursing facility placement. Worker sent guardianship questionnaire, psychiatric consult, and Dr Jimenez's eval to [facility] attornyes to pursue emergency guardianship. Worker spoke with DEWAYNE Gudino social work nurse, and confirmed that they will secure permant guardianship after we have secured emergency temporary guardianship.
--- NOTE | 2020-05-30 15:39 | NUR ---
Public Health Worker faxed referral to several yris-psych placements including [facility] in [place], [facility], [facility] in [place], [facility], [facility], [facility], and [facility]. SW contacted [facility] and was advised they could not accept a referral until 06/11/20. SW contacted [facility] and was advised they do not have a bed available but could possibly have one Thursday. SW contacted [facility] and was advised that they can't accept a referral until 06/08/20, but that they will forward the referral on to their sister facility in [place], [place]. SW contacted [facility] and [facility] who will screen referral and follow up with CHRISTIE. [facility] in [place] does not have any current openings. CHRISTIE attempted to contact [facility] and was unable to leave a message. CHRISTIE contacted Henrietta at [facility] and faxed copy of psych consult. CHRISTIE will continue to follow.
--- NOTE | 2020-05-30 15:48 | NUR ---
Primary Clinician spoke with [facility] who advised they are currently full but may have openings on Thursday. SW will continue to follow.
--- NOTE | 2020-05-30 16:03 | NUR ---
germination worker spoke with [place] social studies department chair at Dr Jimenez's office and advised of work to secure guardianship for patient.
[2020-05-30 16:27] VITALS: BP 119/43; PULSE 64; TEMP 98.1
[2020-05-30 20:00] VITALS: BP 124/43; PULSE 73; TEMP 98.7
[2020-05-30 23:32] VITALS: BP 140/53; PULSE 73; TEMP 98.7
--- NOTE | 2020-05-31 00:50 | NUR ---
Patient has rested well so far this shift. During bedside shift report, patient stated she was on the bus and asked if this nurse was the business architect. Upon assessment (about an hour later), patient stated she thought she was in the care home and was asking if the medications I had were the ones she normally takes. States the month is August. Patient appears to be less anxious at this time. States she can hear a car motor, but states she is ready to go to bed. Denies pain. Left side of her face noted to be bruised and swollen. Bed alarms on. Unsteady gait noted. Will continue to monitor patient.
[2020-05-31 03:28] VITALS: BP 121/43; PULSE 74; TEMP 97.5
[2020-05-31 08:24] VITALS: BP 119/38; PULSE 70; TEMP 98.3
--- NOTE | 2020-05-31 08:59 | NUR ---
Follow-up visit; Patient was receptive to prayer again this morning. Metal Dresser also wished her well and offered God's blessings.
[2020-05-31 09:25] LABS: ALBUMIN 3.9 gm/dL (3.5-5.0); BILIRUBIN,TOTAL 0.4 mg/dL (0.0-1.0); CREATININE, serum 0.72 (0.52-1.25); TOTAL PROTEIN 6.9 gm/dL (6.4-8.2)
--- NOTE | 2020-05-31 09:44 | NUR ---
grease worker spoke with Jhonny Perkins, claims attorney, and confirms that son, Miguel, has agreed to be the patient's guardian. Worker confirmed, with Debi at [facility], that patient has a Payee and has a Visa card that is filled each month, after her bills are paid. Patient's payee is Madyson Bailey with [facility] ([facility]) and she can be reached at [email or web address] and [phone]. Worker left a message and sent email requesting she provide financial information to Michele Stern with [employer].
[2020-05-31 12:39] VITALS: BP 109/34; PULSE 64; TEMP 97.9
[2020-05-31 15:58] VITALS: BP 118/66; PULSE 70; TEMP 98.2
--- NOTE | 2020-05-31 16:56 | NUR ---
[facility] in [place] reports that they should be able to accept the patient and that they should have a bed available on Thursday or Thursday. [facility] reports that they would be able to accept the patient, once the patient gets temporary guardianship. SW to continue to follow.
--- NOTE | 2020-05-31 18:13 | NUR ---
Patient currently resting in bedside recliner. Patient has been alert but disoriented and confused throughout the shift. Patient has been reoriented often, but reorientation is difficult and does not last long. Patient has been impulsive and gotten up unassisted several times today. Patient is steady with gaitbelt and walker, is cooperative when reminded that she needs to have staff with her. Bed alarm on currently, call light within reach.
[2020-05-31 19:55] VITALS: BP 136/56; PULSE 78; TEMP 98
[2020-06-01] VITALS: BP 142/54; PULSE 75; TEMP 97.7
--- NOTE | 2020-06-01 05:53 | NUR ---
Patient rested in bed from about 2200 till about 0100. Patient then got out of bed and was stating she didn't want the doors to hit her and was pointing to the closet. Patient was confused and unable to reorient. Patient wanted to walk, so staff ambulated with patient. At about 0145 patient noted to be yelling in the hallway and was convinced the staff was going to murder her and hit her with "the doors". Multiple staff attempted to de-escalate the situation with no success. PRN seroquel administered. This was not effective. This nurse was notified that the patient was assisted back into her chair with chair alarm on. When staff arrived patient was noted to be ambulating very quickly on the medical unit. Staff assisted patient back into bed. At 0300 Indigo Harvey was notified of behaviors and ordered an additional 25mg of Seroquel be given. This was administered with some difficulty because patient was still stating that staff was trying to kill her and throw her out the window. Staff attempted to reassure patient that we were here too help. Patient took medication. Upon reassessment patient was asleep in her chair. Patient awoke and requested to get back into bed. Assisted back into bed, and patient was continuing to talk about being hit with the doors. Patient assured she as safe and has since fallen asleep. Bed alarms on. Will continue to monitor.
[2020-06-01 06:36] LABS: BASO % 0.3 % (0.0-2.0); EOS # 0.1 (0.0-0.7); EOS % 1.1 % (0-4.0); GRAN # 4.8 (1.4-6.5); GRAN % 75.3 % (42.2-75.2); HEMOGLOBIN 10.2 g/dl (12.5-16.0); LYMPH % 16.3 % (20.0-51.0); MEAN CELL VOLUME 88 fl (80.0-100.0); MEAN CORPUSCULAR HEMOGLOBIN 29 pg (27.0-31.0); MEAN CORPUSCULAR HGB CONC 33 g/dl (33.0-37.0); MEAN PLATELET VOLUME 10.1 fl (7.4-10.4); MONO # 0.4 (0.1-0.6); MONO % 6.8 % (1.7-9.3); PLATELET COUNT 161 K/mm3 (130-400); RED BLOOD COUNT 3.53 M/mm3 (4.10-5.30); REDCELL DISTRIBUTION WIDTH-CV 14.4 % (11.5-14.5)
[2020-06-01 06:43] LABS: HEMATOCRIT 31.2 % (37.0-47.0)
[2020-06-01 06:48] LABS: CREATININE, serum 0.68 (0.52-1.25); POTASSIUM 3.4 mmol/L (3.4-5.0)
[2020-06-01 08:09] VITALS: BP 130/41; PULSE 75; TEMP 98.4
--- NOTE | 2020-06-01 08:21 | NUR ---
PT SLEEPING SOUNDLY AT THIS TIME. RESPERATIONS EVEN AND UNLABORED.
[2020-06-01 11:18] VITALS: BP 112/40; PULSE 75; TEMP 98.1
[2020-06-01] MEDS ORDERED: SEROQUEL 2525 MG/TAB PO (15:15)
[2020-06-01 15:56] VITALS: BP 100/36; PULSE 76; TEMP 98.4
--- NOTE | 2020-06-01 15:56 | NUR ---
REPORT TO [facility]. PT TO TRANSFER VIA SECURE TRANSPORT.
--- NOTE | 2020-06-01 16:43 | NUR ---
Belt And Link Shop Supervisor was contacted by Adolfo at [facility] [place], [place]. Adolfo inquired about having another screening for involuntary placement. Adolfo states they have a bed available today and want to take the patient. CHRISTIE contacted Carlos at [facility] who advised they would not screen for an involuntary placement as patient has dementia. Following this conversation, CHRISTIE received Guardianship documents via email. CHRISTIE contacted Adolfo at [facility] who requested Guardianship documents. CHRISTIE provided. Adolfo advised they talked to patient's newly appointed Guardian, Miguel (son) and obtained his consent to admit. CHRISTIE contacted ILYA Jackson and YAMIL Bautista to provide update. CHRISTIE scheduled secure transport to molded goods spot picker at 1630. CHRISTIE contacted Miguel and obtained verbal consent on transfer form. Control System Computer Scientist notified and transfer consent form placed on chart. Miguel is in agreement with transport time and discharge plan. CHRISTIE faxed discharge orders and medications to [facility]. CHRISTIE notified DEWAYNE Shrestha of discharge plan. CHRISTIE placed guardianship documents in chart. No additional needs at this time.
--- NOTE | 2020-06-01 17:51 | NUR ---
PT LEFT WITH SECURE TRANSPORT TO [facility].
--- NOTE | 2020-06-01 17:51 | NUR ---
PT CONDITION CHANGED AND WAS COOPERATIVE. HALDOL NOT NEEDED.
== END 2020-06-01 17:53 ==
LOC: COL.ER 13:10 → SURG 15:32
PROVIDERS: Emergency Medicine; Internal Medicine; Physician Assistant; ADMIT Hospitalist
DX: G40.909 Epilepsy, unspecified, not intractable, without status epilepticus (principal); R94.39 Abnormal result of other cardiovascular function study; E87.6 Hypokalemia; R29.6 Repeated falls; F22 Delusional disorders; G20 Parkinson's disease; F03.90 Unspecified dementia, unspecified severity, without behavioral disturbance, psychotic disturbance, mood disturbance, and anxiety; F32.9 Major depressive disorder, single episode, unspecified; I10 Essential (primary) hypertension; E78.5 Hyperlipidemia, unspecified; D64.9 Anemia, unspecified; Z79.82 Long term (current) use of aspirin; Z87.891 Personal history of nicotine dependence
CPT/HCPCS: 99231-AI; 99232-AI; G0378; J1650; J2060; J3480; J7030; Q2009